=== PATIENT | female | born 1980 | race Caucasian/White ===

== ENCOUNTER 2017-02-11 07:02 | Observation (INO) ==
--- NOTE | 2017-02-11 07:36 | CT Report ---
History is dysphasia The ventricles are normal in size. No acute intracranial hemorrhage, mass effect, or evidence of acute cortical stroke seen. Impression: No acute intracranial pathology seen. The CT exam was performed using one or more of the following dose reduction techniques: Automated exposure control, adjustment of the mA and/or kV according to patient size, or use of iterative reconstruction technique. PROCEDURE INTERPRETED AT [facility] DEPARTMENT OF RADIOLOGY Final Report Signed by: Dr. Albina Camacho
[2017-02-11 07:42] LABS: Apearance,Urine CLOUDY (Clear); Bacteria,Urine Occasional /HPF (Few); Bilirubin,Urine Negative (Negative); Blood, Urine Negative (Negative); Glucose,Urine (UA) Negative (Negative); Ketones,Urine Negative (Negative); Mucus,Urine Occasional /LPF (Occasional); Nitrite,Urine Negative (Negative); Protein,Urine Negative; RBC,Urine 1 /HPF (0-4); Squamous Epithelial Cell,Urine Few /HPF (0-10); Urine Color Yellow (Yellow); Urine Specific Gravity 1.004 (1.001-1.035); Urine Urobilinogen < 2.0 EU/DL (0.2-1.0); WBC,Urine <1 /HPF (0-6)
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
[2017-02-11 07:51] LABS: Basophils # 0.1 10*3/uL (0.0-0.2); Eosinophils # 0.2 10*3/uL (0.0-0.87); Eosinophils % 2.3 % (0.00-10.9); Hematocrit 35.8 VOL% (35.7-47.0); Hemoglobin 12.1 GM/DL (12.0-16.0); Immature Granulocytes % 0.2 %; Immature Granulocytes Absolute 0.02 #; Lymphocytes # 3.2 10*3/uL (1.4-4.0); Lymphocytes % 36.8 % (21.3-54.2); Mean Corpuscular HGB Conc 33.8 GM/DL (32-36); Mean Corpuscular Hemoglobin 31 PG (27-34); Mean Corpuscular Volume 91.1 FL (87-102); Monocytes # 0.6 10*3/uL (0.11-0.8); Monocytes % 6.4 % (1.7-12.7); Neutrophils # 4.7 10*3/uL (1.4-7.4); Neutrophils % 53.3 % (38.7-73.9); Platelet Count 228 T/CUMM (130-400); Red Blood Count 3.93 MC/CUMM (3.8-5.5); Red Cell Distribution Width 13.1 % (9.3-17.3); White Blood Count 8.8 T/CUMM (4-12)
[2017-02-11 08:01] LABS: Barbiturates Screen,Urine Negative (Negative); Benzodiazepines Screen,Urine Negative (Negative); Cannabinoid Screen,Urine Negative (Negative); Opiate Screen,Urine Positive (Negative); Phencyclidine Screen,Urine Negative (Negative)
[2017-02-11 08:05] LABS: Ammonia < 10 UMOL/L (11-32)
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
[2017-02-11 08:06] LABS: PT Patient Result 10.2 SECS; Partial Thromboplastin Time 27.3 SECS (0-40)
--- NOTE | 2017-02-11 08:17 | XRay Report ---
XR chest 2V Date: 02/11/2017 7:33 AM History: Alteration of consciousness Comparison: None Technique: PA and lateral chest Findings: The heart is normal in size. Expiratory chest with minimal atelectasis. Unremarkable mediastinum and osseous structures. Impression: Expiratory chest with minimal atelectasis. PROCEDURE INTERPRETED AT [facility] DEPARTMENT OF RADIOLOGY Final Report Signed by: Dr. Linnette Elias
[2017-02-11] MEDS ORDERED: METOCLOPRAMIDE 10 MG/2 ML VIAL ONE (08:26)
[2017-02-11] MEDS ORDERED: ONDANSETRON 4 MG/2 ML VIAL IV STA (08:26)
[2017-02-11] MEDS ORDERED: METOCLOPRAMIDE 10 MG/2 ML VIAL IV STA (08:26)
[2017-02-11] MEDS ORDERED: ONDANSETRON 4 MG/2 ML VIAL ONE (08:26)
[2017-02-11 08:28] LABS: Alanine Aminotransferase 22 U/L (13-56); Albumin 3.7 G/DL (3.4-5.0); Alkaline Phosphatase 54 U/L (45-117); Aspartate Amino Transferase 9 U/L (0-37); Bilirubin,Total < 0.39 MG/DL (0.2-1.0); Blood Urea Nitrogen 8 MG/DL (7-18); Calcium 8.9 MG/DL (8.5-10.1); Free T4 (Free Thyroxine) 1.05 NG/DL (0.76-1.46); Glucose 115 MG/DL (74-106); Magnesium 1.9 MG/DL (1.8-2.4); Potassium 3.3 MMOL/L (3.5-5.1); Sodium 143 MMOL/L (136-145); Total Protein 7.4 G/DL (6.4-8.3)
[2017-02-11] MEDS ORDERED: ONDANSETRON 4 MG/2 ML VIAL IV PRN (10:28)
[2017-02-11 11:42] LABS: Cholesterol 132 MG/DL (50-200); HDL Cholesterol 69 MG/DL (40-60); Risk Ratio 1.91; Triglycerides 64 MG/DL (2-150); Troponin I Only < 0.015 NG/ML (0.00-0.045); VLDL CHOLESTEROL 12.8 MG/DL
--- NOTE | 2017-02-11 12:14 | Ultrasound Report ---
History is altered mental status, altered LOC Grayscale, spectral Doppler, and color flow analysis performed and interpreted No significant plaque seen on the two-dimensional images Maximum systolic velocities are 90 on the right and the 81 on the left Peak systolic ratios are 1.0 bilaterally There is antegrade flow in both vertebral arteries Impression: No significant plaque with less than 50% diameter stenoses bilaterally by NASCET criteria PROCEDURE INTERPRETED AT [facility] DEPARTMENT OF RADIOLOGY Final Report Signed by: Dr. Albina Camacho
[2017-02-11] MEDS: SODIUM CHLORIDE 0.9% 1,000 ML IV SCH (13:00)
[2017-02-11] MEDS ORDERED: LORazepam 2 MG/1 ML VIAL IV ONE (13:54)
--- NOTE | 2017-02-11 15:10 | Magnetic Resonance Report ---
Exam: MR head/brain wo con Date: 02/11/2017 10:28 AM Comparison: CT brain 02/11/2017 Indication: Alteration of consciousness, headache, confused speech Technique:[Multiple acquisitions were obtained including sagittal T1, coronal T2, and axial ADC, diffusion, FLAIR, T2, GRE, and T1 scans without contrast only. Scans were obtained on a 1.5 Malia magnet.] Findings: The ventricles remain normal in size with no midline displacement. The pituitary has a normal appearance and the cerebellar tonsils are normal in their location. No acute infarction is identified on the diffusion scans. No evidence of hemorrhage, mass, or extracerebral collection. Minimally enlarged perivascular spaces are noted which represent a normal variant. 12.5 mm retention cyst/polyp in the left maxillary sinus. No acute findings in the orbits, temporal bones, or [place]. Impression: No acute intracranial pathology identified. 12.5 mm retention cyst/polyp in left maxillary sinus. PROCEDURE INTERPRETED AT [facility] DEPARTMENT OF RADIOLOGY Final Report Signed by: Dr. Linnette Elias
--- NOTE | 2017-02-11 16:56 | Neurology Consult Note ---
History of Present Illness History of present illness: Ms. Grady is a 37 year old right-handed white lady with no known medical history presents to the ED today for further evaluation of mental status and acute onset of confused speech. Patient was brought in by her . He is present at the bedside and states that the patient was in her normal state of health when he went to work yesterday but when he returned home this morning he found his had severe difficulty speaking. Furthermore, the words that she was able to get out didn't make any sense. He does report that patient has had a headache since Wednesday and that she has been taking Tylenol 3 to help with the pain with mild relief. 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 MRI of the brain reveals no acute abnormalities. All the other blood work looks okay. Potassium is a bit low and we will replace it. Home Medications Medication Instructions Recorded Confirmed Type Norethindrone-E.estradiol-Iron 1 capsule PO DAILY 02/11/17 02/11/17 History [Taytulla 1 mg-20 Mcg Capsule] Allergies Allergy/AdvReac Type Severity Reaction Status Date / Time No Known Allergies Allergy Verified 02/11/17 07:16 12 point system: reviewed and no additional remarkable complaints except as stated Medical,Surgical,& Family Hx - Family History Family History: Reports;: Family Diabetes, Family Heart Disease, Family Hypertension, Family Psychiatric Problems (Mother-"breakdown") - Social History Smoking Status: Never smoker Frequency of Alcohol Use: Occasionally Type of Drug Use: None Exam - Constitutional Vitals: Period Temp Pulse Resp BP Sys/Pineda Pulse Ox Last 24 Hr 98.5 F-101.0 F 75-110 16-20 126-146/72-96 96-98 Exam: GENERAL: Patient is in no acute distress. NECK: Neck is supple. There is no JVD. No carotid bruits present. No thyroid masses. CVS: First and second heart sounds are normal. There is no S3 present. Regular rate and rhythm. RESPIRATORY: Lungs are clear to auscultation without any rales or rhonchi. ABDOMEN: Soft and non-tender. Bowel sounds are present. There is no hepatosplenomegaly. EXT: There is no palpable edema. Peripheral pulses are present. Skin: No rashes Central Nervous system: General: Alert, awake and Oriented x 3 Speech: Fluent Comprehension: Intact and normal Facial expressions: Normal Cranial Nerves: CN1/Olfactory: Normal CN II/ Optic: Normal, Visual Thorne unreliable CN III, and : NAYE & EOMI CN V: Normal & intact CN VII: face is symmetric CNVIII: Normal CN XI/X/XI/XII: Intact and Normal Motor: Bulk and Tone is normal. Strength in the right 4/5 Strength in the left 4/5 Sensory: Grossly intact for all the modalities of PP, LT and temp sense Reflexes: 1+ and symmetrical Cerebellar function: Normal finger to nose and heel to paul testing. Toes: Equivocal Gait: Not tested Results - Labs CBC & BMP: 02/11/17 07:18 02/11/17 07:18 Assessment and Plan (1) Complicated migraine Status: Acute Assessment and plan: Geodon 20 mg IM one dose Thorazine 25 mg IV 1 dose at bedtime Stop norco Current Visit: Yes (2) Altered mental status Status: Acute Assessment and plan: Certainly infectious etiology such as meningitis is in the differential diagnosis. If she is no better by tomorrow morning then will go ahead and do a spinal tap Discussed at length with her . He agrees with the plan of care Current Visit: Yes
[2017-02-11] MEDS ORDERED: ZIPRASIDONE 20 MG/1 ML VIAL IM ONE (17:23)
[2017-02-11] MEDS: ACETAMINOPHEN 325 MG TABLET PO PRN (17:45)
[2017-02-11] MEDS: POTASSIUM CHLORIDE 20 MEQ TABLET PO SCH (17:47)
[2017-02-12] MEDS: NORETHINDRONE E ESTRADIOL IRON PO SCH ×2 (01:50→08:12)
[2017-02-12 05:57] LABS: Basophils # 0.1 10*3/uL (0.0-0.2); Basophils % 0.7 % (0.0-0.8); Eosinophils # 0.1 10*3/uL (0.0-0.87); Eosinophils % 1.4 % (0.00-10.9); Hematocrit 31.3 VOL% (35.7-47.0); Hemoglobin 10.4 GM/DL (12.0-16.0); Immature Granulocytes % 0.1 %; Immature Granulocytes Absolute 0.01 #; Lymphocytes # 3.6 10*3/uL (1.4-4.0); Lymphocytes % 40.8 % (21.3-54.2); Mean Corpuscular HGB Conc 33.2 GM/DL (32-36); Mean Corpuscular Hemoglobin 31 PG (27-34); Mean Corpuscular Volume 92.1 FL (87-102); Mean Platelet Volume 10.8 FL (9.6-12.0); Monocytes # 0.8 10*3/uL (0.11-0.8); Monocytes % 8.8 % (1.7-12.7); Neutrophils # 4.3 10*3/uL (1.4-7.4); Neutrophils % 48.2 % (38.7-73.9); Platelet Count 196 T/CUMM (130-400); Red Cell Distribution Width 13.2 % (9.3-17.3); White Blood Count 8.8 T/CUMM (4-12)
[2017-02-12 06:22] LABS: Calcium 8.6 MG/DL (8.5-10.1); Potassium 4.2 MMOL/L (3.5-5.1)
[2017-02-12] MEDS: ACETAMINOPHEN 325 MG TABLET PO PRN ×2 (06:25→12:04)
[2017-02-12] MEDS: SODIUM CHLORIDE 0.9% 1,000 ML IV SCH (06:48)
--- NOTE | 2017-02-12 07:32 | Event Note ---
Because of a malfunction in the Qianmi system, I am unable to append my dictation to the admission dictation note yesterday. I interviewed and examined the patient. I reviewed all available laboratory and radiographic test results. I agree with the assessment and plans of Nichole Barajas NP. Ms. Grady has been admitted to the hospital. She was undergone a CT scan and MRI of the brain. She has been seen in consultation by Dr. Clifford of neurology. Await further recommendations from neurology.
[2017-02-12] MEDS: POTASSIUM CHLORIDE 20 MEQ TABLET PO SCH (08:12)
[2017-02-12] MEDS ORDERED: ASPIRIN EC 81 MG TABLET PO SCH (09:00)
[2017-02-12] MEDS ORDERED: PANTOPRAZOLE 40 MG TABLET PO SCH (09:00)
--- NOTE | 2017-02-12 09:23 | Discharge Summary ---
Hospital Course - Hospital Course Hospital Course: Ms. Grady is a 37 year old right-handed white lady with no known medical history presents to the ED today for further evaluation of mental status and acute onset of confused speech. Patient was brought in by her . He is present at the bedside and states that the patient was in her normal state of health when he went to work yesterday but when he returned home this morning he found his had severe difficulty speaking. Furthermore, the words that she was able to get out didn't make any sense. He does report that patient has had a headache since Wednesday and that she has been taking Tylenol 3 to help with the pain with mild relief. 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 MRI of the brain reveals no acute abnormalities. All the other blood work looks okay. Ms. Grady was admitted to the hospital with the above symptoms. CT scan of the head and MRI of the brain demonstrated no acute abnormalities. She was seen in consultation by Dr. Clifford of neurology. By the following morning her symptoms had completely resolved. She expressed concern that this might be related to migraine headaches which she previously had, the last such headache occurring 11 years prior to admission. She had a persistent low-grade headache during her hospitalization which she stated was not similar to those of her previous migraine headaches. She was treated for this headache with 1 dose of Imitrex. At the time of her discharge she was stable and had plans to follow up with Dr. Clifford as an outpatient. Diagnosis - Discharge Diagnosis (1) Altered mental status Status: Acute (2) Complicated migraine Status: Acute Discharge Plan - Discharge Data Disposition: Disch To Home/Self Care Condition at Discharge: Stable Discharge Diet: advance to your usual diet Activity: resume usual activities as tolerated - Discharge Medications New SUMAtriptan TAB [Imitrex Tab] 50 mg PO Q6H PRN #10 tablet PRN Reason: Headache Continue Norethindrone-E.estradiol-Iron [Taytulla 1 mg-20 Mcg Capsule] 1 capsule PO DAILY - Follow Up or Referral - Forms/Instructions Exam - Constitutional Vitals: Period Temp Pulse Resp BP Sys/Pineda Pulse Ox Last 24 Hr 97.7 F-101.1 F 61-84 16-20 102-135/62-79 96-100 Discharge Results Procedures and tests throughout hospitalization: Pending Orders 02/11/17 11:03 Blood Culture Stat 02/13/17 04:00 Basic Metabolic Panel IN AM Comp Blood Count Auto Diff IN AM Labs on day of discharge: Labs from last 24 hours 02/12/17 02/12/17 02/11/17 05:18 05:18 11:03 WBC 8.8 RBC 3.40 L Hgb 10.4 L Hct 31.3 L MCV 92.1 MCH 31 MCHC 33.2 RDW 13.2 Plt Count 196 MPV 10.8 Neut % (Auto) 48.2 Lymph % (Auto) 40.8 [place] % (Auto) 8.8 Eos % (Auto) 1.4 Baso % (Auto) 0.7 Neut # (Auto) 4.3 Lymph # (Auto) 3.6 [place] # (Auto) 0.8 Eos # (Auto) 0.1 Baso # (Auto) 0.1 Immature Gran % 0.1 Nucleated RBC % 0.0 Immature Gran # 0.01 Nucleated RBCs # 0.00 Immature Plt Fraction 0.0 Sodium 143 Potassium 4.2 Chloride 110 H Carbon Dioxide 27 Anion Gap 10.2 BUN 8 Creatinine 0.60 GFR Calculation 121 BUN/Creatinine Ratio 13.00 Glucose 87 Hemoglobin A1c 5.6 Calculated Osmolality 281.0 Calcium 8.6 Troponin I Triglycerides Cholesterol LDL Cholesterol VLDL Cholesterol HDL Cholesterol Heart Disease Risk Ratio 02/11/17 11:03 WBC RBC Hgb Hct MCV MCH MCHC RDW Plt Count MPV Neut % (Auto) Lymph % (Auto) [place] % (Auto) Eos % (Auto) Baso % (Auto) Neut # (Auto) Lymph # (Auto) [place] # (Auto) Eos # (Auto) Baso # (Auto) Immature Gran % Nucleated RBC % Immature Gran # Nucleated RBCs # Immature Plt Fraction Sodium Potassium Chloride Carbon Dioxide Anion Gap BUN Creatinine GFR Calculation BUN/Creatinine Ratio Glucose Hemoglobin A1c Calculated Osmolality Calcium Troponin I < 0.015 Triglycerides 64 Cholesterol 132 LDL Cholesterol 57.0 VLDL Cholesterol 12.8 HDL Cholesterol 69 H Heart Disease Risk Ratio 1.91 DS: Provider Date of admission: 02/11/17 08:53 Primary care physician: . No PCP Attending physician on admission: Domenic Gibbs Consults: 02/11/17 10:28 Consult to Case Mgmt/Social Srvs [CONS] Routine Reason for Case Mgmt/Social Srvs: Discharge Planning Consult to Physician [CONS] Routine Comment: Consulting Provider: Roshan Clifford Consulting Provider Notified: Yes When should Consulting Provider be notified: Now Person Notified: helder garcía Date Notified: 02/11/17 Time Notified: 13:12 Discharging clinician: Domenic Gibbs
[2017-02-12 11:03] VITALS: BP 120/69
[2017-02-12] MEDS ORDERED: BUTALBITAL/ACETAMIN/CAFFEINE 50-325-40 MG TABLET PO PRN (13:02)
--- NOTE | 2017-02-12 13:02 | Neurology Progress Note ---
Neurology - PN : Subjective Interval history: Patient reported that last night after she got Geodon injection she fell asleep and slept for 5-6 hours. When she woke up she felt completely different person. She had no confusion or headache. This morning she is feeling much better. No confusion at all. She still have mild headache. She got a dose of Imitrex which helped some. She is ready and wants to go home. Exam (Progress Note) - Constitutional Vitals: Period Temp Pulse Resp BP Sys/Pineda Pulse Ox Last 24 Hr 97.7 F-101.1 F 61-84 16-20 102-126/62-79 96-100 Exam: GENERAL: Patient is in no acute distress. NECK: Neck is supple. There is no JVD. No carotid bruits present. No thyroid masses. CVS: First and second heart sounds are normal. There is no S3 present. Regular rate and rhythm. RESPIRATORY: Lungs are clear to auscultation without any rales or rhonchi. ABDOMEN: Soft and non-tender. Bowel sounds are present. There is no hepatosplenomegaly. EXT: There is no palpable edema. Peripheral pulses are present. Skin: No rashes Central Nervous system: General: Alert, awake and Oriented x 3 Speech: Fluent Comprehension: Intact and normal Facial expressions: Normal Cranial Nerves: CN1/Olfactory: Normal CN II/ Optic: Normal, Visual Thorne unreliable CN III, and : NAYE & EOMI CN V: Normal & intact CN VII: face is symmetric CNVIII: Normal CN XI/X/XI/XII: Intact and Normal Motor: Bulk and Tone is normal. Strength in the right 5/5 Strength in the left 5/5 Sensory: Grossly intact for all the modalities of PP, LT and temp sense Reflexes: 1+ and symmetrical Cerebellar function: Normal finger to nose and heel to paul testing. Toes: Equivocal Gait: Normal Results - Labs CBC & BMP: 02/12/17 05:18 02/12/17 05:18 Assessment and Plan (1) Complicated migraine Status: Acute Assessment and plan: Continue Imitrex alternate with Fioricet Okay to go home from neuro standpoint Follow-up in 4 weeks Current Visit: Yes (2) Altered mental status Status: Acute Assessment and plan: Certainly infectious etiology such as meningitis is in the differential diagnosis. If she is no better by tomorrow morning then will go ahead and do a spinal tap Discussed at length with her . He agrees with the plan of care Current Visit: Yes Quality Measures - Stroke Presenting Symptoms: Broca's dysphasia Symptom Onset Unknown: Yes Specialty Discharge - Follow Up or Referrals Follow up with: Roshan Clifford MD [Physician] - 1 Month
== END 2017-02-12 14:36 | disposition home or self-care (01) ==
LOC: EDBD → EDUNIT# → N.ED 07:02 → N.EDINP 08:53 → INTOOBSV 08:53 → N.EDINP 10:05 → N.3E 10:13